=== PATIENT | female | born 1950 | race Caucasian/White ===

== ENCOUNTER 2024-02-03 14:14 | Outpatient (AMB) | payer MEDICARE, MEDICAID, SELFPAY ==
--- NOTE | 2024-02-03 14:20 | A.OFFVIS_ITS ---
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 Accompanied by: Self / Same As Patient Allergies duloxetine [From Cymbalta] Allergy (Unknown, Verified 02/03/24 14:37) Unknown Iodinated Contrast Media Allergy (Unknown, Verified 02/03/24 14:37) Unknown prednisone Allergy (Unknown, Verified 02/03/24 14:37) throwing things tetracycline Allergy (Unknown, Verified 02/03/24 14:37) Unknown Medication List - Last Reconciled 02/05/24 by VICKEY Quesada albuterol sulfate 90 mcg/actuation 2 puffs inhalation QID buspirone 7.5 mg PO BID fentanyl 25 mcg/hr 1 patch transdermal Q72H ibuprofen 600 mg PO TID ipratropium-albuterol 20-100 mcg/actuation (Combivent Respimat) 1 puff inhalation Q6H naloxone 4 mg/actuation (Narcan) 1 spray intranasal Q2M nicotine 1 patch transdermal DAILY pantoprazole 20 mg PO DAILY paroxetine HCl 20 mg PO DAILY sennosides 8.6 mg PO BEDTIME tiotropium bromide 2.5 mcg/actuation (Spiriva Respimat) 2 inhalations inhalation QAM HPI HPI Chronic pain syndrome: Details: Patient is a 73-year-old female with prior history anxiety and depression, COPD, chronic pain syndrome, tobacco dependence syndrome, recent hospitalization for COPD exacerbation and sepsis 01/09/24-01/13/24, presents today for initial evaluation for potential medical management for multiple ongoing chronic pain issues. She has been managed on opioid medications at [facility]. She suffers from ongoing back pain with radiation into her buttocks and down into bilateral posterior extremities and feet, pain is worse on the right and increased weakness on the left. She has history of laminectomy at L5- S1 region in 2010 with post-op complication of CSF leak and scar tissue adhesions. Patient reports since her back surgery, she has continued to have significant chronic back pain. Patient was also hospitalized for diverticulitis in 2022 and had colon resection by Denilson Gonzáles on 07/22/22 at [place] with wound dehiscence complication which required further medical care. Patient has moved to [place], [place] about 7 months ago to live with her daughter who assists her with ADLs. Patient was seen at [facility] but unfortunately they were not willing to prescribe opioids. At this point, patient continues to face challenges with getting her medications from [place] to [place]. She reports our office, which is one hour away where she is currently lives, is the closest Pain Management office for potential opioid prescribing. Patient's current pain management regime includes Fentanyl 25 mcg patch every 72 hours and oxymorphine 10 mg QID prn. She also takes methocarbamol intermittently. Patient was seeing Psychiatrist in [place] for anxiety and depression, and is taking Buspar. She smokes 1/2 PPD and and has tried marijuana in the past. She denies any alcohol or illicit drug use. Per referral notes, patient was unable to get her last prescription for axial motion due to the lack of availability and has been off axial morphine for over 1 week. Due to out of state status, patient's current pain management provider in [place] is considering to taper patient to Fentanyl 12 mcg patch for a month and then stop her opioids unless she finds another provider who prescribes opioids in [place]. Patient reports she recently completed cervical (12/2023) and lumbar (09/2023) MRIs at [facility] for worsening lower back and neck pain with radicular symptoms, weakness, spasms and tremors. MRI reports are not available for review today. Denies any fever or chills, abdominal or groin pain, dizziness, shortness of breath, chest pain, bladder or bowel dysfunction, or saddle anesthesia. She ambulates with the assistance of walker with seat with antalgic gait and in flex forward posture. On evaluation, it was determined that there is a continued need to continue palliative chronic opioid prescribing. Patient is aware of risks and benefits which were reviewed with the patient. She believes she is more functional and less symptomatic on her current opioid management with Fentanyl and oxymorphine. However, she is a severe risk for chronic opioid addiction. Significant concern was discussed today due to proximity of her home to our office. We briefly discussed our opioid policy and frequency of pill count visits. Given today's visit in the afternoon, our lab is closed for UDS. Patient and her daughter are willing to return on Tuesday for UDS. PHQ-9 SCORE: 17 OPIOID RISK STRATIFICATION SURVEY SCORE: 33 (severe risk for chronic opioid addiction) Location: Neck, low back radiates down bilateral legs, right>left Duration: Chronic pain for 15 years Characteristics of symptom or complaint: Achin, throbbing, flashing, shooting, sharp, burning, radiating, pulling Aggravating or associated factors: Walking, standing, movements, ADLs, personal care, sleep, cold weather Relieving factors: Fentanyl, oxymorphine, methocarbamol, rest, heat/ice therapy Treatment: PT and OT therapy, chiropractic, massage therapy, acupuncture, TENS unit [facility] Medical History (Updated 02/03/24 @ 15:22 by VICKEY Quesada) Sciatica Cervicalgia Failed back syndrome Hypoglycemia Tobacco dependence syndrome Chronic pain syndrome Depressive disorder GERD (gastroesophageal reflux disease) COPD (chronic obstructive pulmonary disease) Depression Anxiety Surgical History (Updated 02/03/24 @ 15:21 by VICKEY Quesada) Hx of laminectomy (~2010) H/O: hysterectomy History of partial colectomy Social History (Updated 02/03/24 @ 15:29 by VICKEY Quesada) Household Members: Children Alcohol intake: former Patient Tobacco Use Status: Current everyday Tobacco user Tobacco use type: Cigarette Substance Use Type: Marijuana Substance Use Frequency: Occasionally Review of Systems Const All systems reviewed & are unremarkable except as noted in HPI and below ENT Reports Normal hearing present Neuro Reports Normal hearing present and Denies Abnormal speech present Physical Exam Vital Signs: Last Vital Signs Pulse 102 H 02/03/24 14:27 BP 140/85 H 02/03/24 14:27 Pulse Ox 92 02/03/24 14:27 Oxygen Delivery Method Room Air 02/03/24 14:27 BMI result Body Mass Index 30.2 General: Appears afebrile. Alert and oriented. Mood and affect appropriate. Follows and participates in conversation appropriately. Respiratory effort is unlabored. No cough. Able to transition from sit to stand unassisted. Ambulates with slow, antalgic gait. Reports LLE weakness and RLE posterior burning pain. Const Orientation/consciousness: patient oriented x3 General: Yes no CVA tenderness Back/Spine/Pelvis Other: Limited lumbar ROM due to pain. Ambulates with antalgic gait in flexed forward position due to pain. Demonstrates 4/5 and 3.5/5 left strength of quadriceps bilaterally as well as flexion/dorsiflexion of bilateral feet against resistance. 2+ pedal pulses bilaterally. Seated straight leg rise with dorsiflexion positive bilaterally, worse on the right in L5-S1 distribution. Diminished patellar and achilles reflexes bilaterally. Facet loading test positive bilaterally. Trish sign positive on the right, Wil?s, Pelvic compression and Stinchfield tests are positive on the right. No groin pain with I/E hip rotations. Valsalva maneuver negative. Back: no CVA tenderness Cervical Spine: loss of normal cervical lordosis, cervical muscular tenderness, pain with cervical ROM, cervical spasm and No Cervical spine tenderness Thoracic/Lumbar Spine: thoracic and lumbar spine normal to inspection, Thoracic/lumbar spine scar(s) (anterior approach for L5-S1 laminectomy in 2010), Lasegue's sign positive bilateral and diffuse, pain with thoraco-lumbar ROM, paraspinal muscle tenderness, thoraco-lumbar ROM limited, No thoracic spinal tenderness and lumbar spinal tenderness (L4-S1) Pelvis: buttock tenderness on the right and sciatic notch tenderness on the right Sacroiliac joints: on the right tender to palpation and on the left nontender Neuro General: patient oriented x3 and CN's II-XI intact bilaterally Cranial nerves: Yes Normal hearing present Cognition (Neuro): normal cognition Speech: No Abnormal speech present Gait exam (Neuro): Antalgic gait present and Assistive device used Motor exam (neuro): Abnormal motor strength present left lower extremity opposition 3 / 5 and Tremors during motor activity present (upper>lower extremities) bilateral Sensory Exam: sensory level loss detected (right L5-S1) Extrem General: Yes capillary refill normal, Yes no clubbing, cyanosis or edema and Yes no calf tenderness Psych Appearance: grossly normal Mental Status: mental status grossly normal Speech and movement: Normal speech and movement present and Clear speech present Affect: normal affect and Sad affect present Attitude: cooperative Thought process: Normal thought process present Thought content: Normal thought content present, suicidality (none), no hallucinations and Depressive thoughts present Insight: Good insight present (Psych) Judgement: Good judgement present (Psych) Results Reviewed Results Reviewed: No imaging reports are available for review today. Assessment & Plan Assessment & Plan (1) Low back pain radiating to both legs: Code(s): M54.50 - Low back pain, unspecified; M79.604 - Pain in right leg; M79.605 - Pain in left leg Category: Medical (2) Failed back syndrome: Code(s): M96.1 - Postlaminectomy syndrome, not elsewhere classified Category: Medical (3) Chronic pain syndrome: Code(s): G89.4 - Chronic pain syndrome Category: Medical (4) Cervicalgia: Code(s): M54.2 - Cervicalgia Category: Medical (5) Lumbosacral spondylosis: Code(s): M47.817 - Spondylosis without myelopathy or radiculopathy, lumbosacral region Category: Medical Plan On evaluation, it was determined that there is a continued need to continue palliative chronic opioid prescribing. Patient is aware of risks and benefits which were reviewed with the patient. She believes she is more functional and less symptomatic on her current opioid management with Fentanyl and oxymorphine. MassPAT was reviewed and is consistent with her history. However, she is a s evere risk for chronic opioid addiction. Significant concern was discussed today due to proximity of her home to our office. We briefly discussed our opioid policy and frequency of pill count visits. Given today's visit in the afternoon, our lab is closed for UDS. Patient and her daughter are willing to return on Tuesday for UDS. Patient is aware that this office can not prescribe until the UDS is reviewed and contracts are signed. PHQ-9 SCORE: 17 OPIOID RISK STRATIFICATION SURVEY SCORE: 33 (severe risk for chronic opioid addiction) Medical release sent to [facility] for most recent cervical and lumbar spine MRI. We also reviewed interventional treatments, including neuromodulation with SCS, PNS or ITDD trial vs implants, as well as diagnostic vs therapeutic injections. All questions were answered and she is agreeable to the plan. Follow up for UDS review and sooner as needed. Coding Level of Care Code New Pt Level 4 (27926) Complex EM visit Add On G2211 Diagnoses Low back pain radiating to both legs M54.50; M79.604; M79.605 Failed back syndrome M96.1 Chronic pain syndrome G89.4 Cervicalgia M54.2 Lumbosacral spondylosis M47.817
[2024-02-03 14:27] VITALS: BP 140/85; PULSE 102; O2SAT 92; BMI 30.2
== END 2024-02-03 15:09 | disposition home or self-care (01) ==
PROVIDERS: Visit Provider Nurse Practitioner Family
DX: M54.50 Low back pain, unspecified (principal); M79.604 Pain in right leg; M79.605 Pain in left leg; M96.1 Postlaminectomy syndrome, not elsewhere classified; G89.4 Chronic pain syndrome; M54.2 Cervicalgia; M47.817 Spondylosis without myelopathy or radiculopathy, lumbosacral region
CPT/HCPCS: 99204; G2211

== ENCOUNTER → 2024-02-03 14:14 | Outpatient (BNVA) | payer MEDICARE, MEDICAID, SELFPAY | PROVIDERS: Visit Provider Nurse Practitioner Family | DX: M54.50 Low back pain, unspecified (principal); M79.604 Pain in right leg; M79.605 Pain in left leg; M96.1 Postlaminectomy syndrome, not elsewhere classified; M54.2 Cervicalgia; M47.817 Spondylosis without myelopathy or radiculopathy, lumbosacral region; G89.4 Chronic pain syndrome | CPT/HCPCS: 99202 ==

== ENCOUNTER 2024-03-05 13:36 | Outpatient (AMB) | payer MEDICARE, MEDICAID, SELFPAY ==
--- NOTE | 2024-03-05 13:54 | MHC.OFFVIS ---
Vital Signs 03/05/24 13:57 Height 5 ft 2 in Weight 141 lb BMI 25.8 BP 130/60 Blood Pressure Location Lt brachial Position Sitting Respiration 18 Pulse 109 H Pulse Source Pulse Oximeter Pulse Oximetry (%) 84 L Oxygen Delivery Method Room Air Intake Visit Reasons: Opioid Contract Allergies duloxetine [From Cymbalta] Allergy (Unknown, Verified 03/05/24 13:59) Unknown Iodinated Contrast Media Allergy (Unknown, Verified 03/05/24 13:59) Unknown prednisone Allergy (Unknown, Verified 03/05/24 13:59) throwing things tetracycline Allergy (Unknown, Verified 03/05/24 13:59) Unknown Medication List - Last Reconciled 03/05/24 by Shira Reece LPN albuterol sulfate 90 mcg/actuation 2 puffs inhalation QID buspirone 7.5 mg PO BID fentanyl 25 mcg/hr 1 patch transdermal Q72H ibuprofen 600 mg PO TID ipratropium-albuterol 20-100 mcg/actuation (Combivent Respimat) 1 puff inhalation Q6H naloxone 4 mg/actuation (Narcan) 1 spray intranasal Q2M nicotine 1 patch transdermal DAILY pantoprazole 20 mg PO DAILY sennosides 8.6 mg PO BEDTIME tiotropium bromide 2.5 mcg/actuation (Spiriva Respimat) 2 inhalations inhalation QAM HPI Comments Details: Erika is very pleasant 73 years old female who presents in my office with complains on severe lower back pain. She was examined in this office by the nurse practitioner and she was interested in entering chronic opioid therapy program in this office. She is suffering from postlaminectomy syndrome. She was administered today opioid risk score. Her PHQ score is equal to 13. Her opioid risk score is equal to 14. Therefore total risk is equal to 27. This is severe risk for opioid addiction. While on itself severe risk of opioid addiction is not something which precludes her from entering into chronic opioid therapy program several obstacles I see which prevents me to start her chronic opioid therapy immediately. 1. She was treated in [facility] with exuberant doses of the opioid therapy including fentanyl patch fat 25 mcg per hour and oxymorphone 10 mg 4 times a day. Therefore her total morphine mg equivalents a is equal to 60+ 120 equal to 180 mme. I explained to the patient that I will not be able to prescribe her this much of the opioid medications. 2. She was given urine drug screen last time she was seen here and her urine demonstrated fentanyl and its metabolites. At the same time mass pat demonstrated that last prescription of the fentanyl she received in June of 2023. We need to verify with her pharmacy whether or not she obtained legal fentanyl, but will call pharmacy on [facility] in [facility] to verify appropriate prescription. 3. She is suffering from postlaminectomy syndrome and treatment for this condition could be involving neuromodulation such as spinal cord stimulator versus intrathecal pain pump. The patient was told that she would be considered a neuromodulation candidate in this office if she wants to continue chronic opioid therapy with us. Brochures of [employer] SCS and intrathecal pain pump were given to the patient. After proper investigation we will invite this patient in 1 week and if her prescription history corroborates with her story I will start her on chronic opioid therapy. However I told the patient today that I will not be able to prescribe oxymorphone to her due to very severe addictive properties of this medication.. [facility] Medical History (Updated 02/03/24 @ 15:22 by VICKEY Quesada) Sciatica Cervicalgia Failed back syndrome Hypoglycemia Tobacco dependence syndrome Chronic pain syndrome Depressive disorder GERD (gastroesophageal reflux disease) COPD (chronic obstructive pulmonary disease) Depression Anxiety Surgical History (Updated 02/03/24 @ 15:21 by VICKEY Quesada) Hx of laminectomy (~2010) H/O: hysterectomy History of partial colectomy Social History (Updated 02/03/24 @ 15:29 by VICKEY Quesada) Household Members: Children Alcohol intake: former Patient Tobacco Use Status: Current everyday Tobacco user Tobacco use type: Cigarette Substance Use Type: Marijuana Review of Systems Const All systems reviewed & are unremarkable except as noted in HPI and below ENT Reports Normal hearing present Neuro Reports Normal hearing present and Denies Abnormal speech present Physical Exam Vital Signs: Last Vital Signs Pulse 109 H 03/05/24 13:57 Resp 18 03/05/24 13:57 BP 130/60 03/05/24 13:57 Pulse Ox 84 L 03/05/24 13:57 Oxygen Delivery Method Room Air 03/05/24 13:57 BMI result Body Mass Index 25.8 General: Appears afebrile. Alert and oriented. Mood and affect appropriate. Follows and participates in conversation appropriately. Respiratory effort is unlabored. No cough. Able to transition from sit to stand unassisted. Ambulates with slow, antalgic gait. Reports LLE weakness and RLE posterior burning pain. Const Orientation/consciousness: patient oriented x3 General: Yes no CVA tenderness Back/Spine/Pelvis Other: Limited lumbar ROM due to pain. Ambulates with antalgic gait in flexed forward position due to pain. Demonstrates 4/5 and 3.5/5 left strength of quadriceps bilaterally as well as flexion/dorsiflexion of bilateral feet against resistance. 2+ pedal pulses bilaterally. Seated straight leg rise with dorsiflexion positive bilaterally, worse on the right in L5-S1 distribution. Diminished patellar and achilles reflexes bilaterally. Facet loading test positive bilaterally. Trish sign positive on the right, Wil?s, Pelvic compression and Stinchfield tests are positive on the right. No groin pain with I/E hip rotations. Valsalva maneuver negative. Back: no CVA tenderness Cervical Spine: loss of normal cervical lordosis, cervical muscular tenderness, pain with cervical ROM, cervical spasm and No Cervical spine tenderness Thoracic/Lumbar Spine: thoracic and lumbar spine normal to inspection, Thoracic/lumbar spine scar(s) (anterior approach for L5-S1 laminectomy in 2010), Lasegue's sign positive bilateral and diffuse, pain with thoraco-lumbar ROM, paraspinal muscle tenderness, thoraco-lumbar ROM limited, No thoracic spinal tenderness and lumbar spinal tenderness (L4-S1) Pelvis: buttock tenderness on the right and sciatic notch tenderness on the right Sacroiliac joints: on the right tender to palpation and on the left nontender Neuro General: patient oriented x3 and CN's II-XI intact bilaterally Cranial nerves: Yes Normal hearing present Cognition (Neuro): normal cognition Speech: No Abnormal speech present Gait exam (Neuro): Antalgic gait present and Assistive device used Motor exam (neuro): Abnormal motor strength present left lower extremity opposition 3 / 5 and Tremors during motor activity present (upper>lower extremities) Sensory Exam: sensory level loss detected (right L5-S1) Extrem General: Yes capillary refill normal, Yes no clubbing, cyanosis or edema and Yes no calf tenderness Psych Appearance: grossly normal Mental Status: mental status grossly normal Speech and movement: Normal speech and movement present and Clear speech present Affect: normal affect and Sad affect present Attitude: cooperative Thought process: Normal thought process present Thought content: Normal thought content present, suicidality (none), no hallucinations and Depressive thoughts present Insight: Good insight present (Psych) Judgement: Good judgement present (Psych) Assessment & Plan Assessment & Plan (1) Low back pain radiating to both legs: Code(s): M54.50 - Low back pain, unspecified; M79.604 - Pain in right leg; M79.605 - Pain in left leg Category: Medical (2) Failed back syndrome: Code(s): M96.1 - Postlaminectomy syndrome, not elsewhere classified Category: Medical (3) Chronic pain syndrome: Code(s): G89.4 - Chronic pain syndrome Category: Medical (4) Cervicalgia: Code(s): M54.2 - Cervicalgia Category: Medical (5) Lumbosacral spondylosis: Code(s): M47.817 - Spondylosis without myelopathy or radiculopathy, lumbosacral region Category: Medical Plan Discussion of the chronic opioid therapy presented as above. Her scores are quite elevated: PHQ-9 SCORE 13 OPIOID RISK STRATIFICATION SURVEY SCORE: 27 (severe risk for chronic opioid addiction) Nevertheless in 1 week I will start her on chronic opioid therapy provided her story will corroborate with reports from her pharmacy on [facility] in [facility]. I will explained to her opioid contract opioid consent and opioid information page. I also gave her brochures about SCS and I DDD. On physical exam today she exhibits very prominent signs of sacroiliitis. In the week I will schedule her for diagnostic right sacroiliac joint injection. Patient Instructions: I here by testify that I spent 32 minutes in conversation with this patient as well as planning her care and organizing this note. Coding Level of Care Code Est Pt Level 4 (28324) Diagnoses Low back pain radiating to both legs M54.50; M79.604; M79.605 Failed back syndrome M96.1 Chronic pain syndrome G89.4 Cervicalgia M54.2 Lumbosacral spondylosis M47.817
[2024-03-05 13:57] VITALS: BP 130/60; PULSE 109; RESP 18; O2SAT 84; BMI 25.8
== END 2024-03-05 14:50 | disposition home or self-care (01) ==
PROVIDERS: Visit Provider Anesthesiology
DX: M54.50 Low back pain, unspecified (principal); M79.604 Pain in right leg; M79.605 Pain in left leg; M96.1 Postlaminectomy syndrome, not elsewhere classified; G89.4 Chronic pain syndrome; M54.2 Cervicalgia; M47.817 Spondylosis without myelopathy or radiculopathy, lumbosacral region
CPT/HCPCS: 99214

== ENCOUNTER → 2024-03-05 13:36 | Outpatient (BNVA) | payer MEDICARE, MEDICAID, SELFPAY | PROVIDERS: Visit Provider Anesthesiology | DX: M54.50 Low back pain, unspecified (principal); M79.604 Pain in right leg; M79.605 Pain in left leg; M96.1 Postlaminectomy syndrome, not elsewhere classified; M54.2 Cervicalgia; M47.817 Spondylosis without myelopathy or radiculopathy, lumbosacral region; G89.4 Chronic pain syndrome | CPT/HCPCS: 99212 ==